=== PATIENT | male | born 1995 | race Caucasian/White ===

== ENCOUNTER 2017-06-16 18:37 | Emergency (ER) | payer BC ==
--- NOTE | 2017-06-16 18:54 | EDM.PDOC ---
ED HPI GENERAL MEDICAL PROBLEM - General Chief Complaint: ENT Problem Stated Complaint: PT HAS SORE THROAT Time Seen by Provider: 06/16/17 18:50 Source of Information: Reports: Patient History Limitations: Reports: No Limitations - History of Present Illness INITIAL COMMENTS - FREE TEXT/NARRATIVE: HISTORY AND PHYSICAL: History of present illness: Comes to the emergency room complaining of bilateral earaches, decreased hearing, and sore throat. States that his symptoms have been present for the past 3 days and are gradually worsening. States that he recently had a sinus infection and completed 7 days of antibiotics. He's not had any discharge from his years. No runny nose. Has had drainage down the back of his throat which has been irritating to him and is contributing to his sore throat. He's been able to expel some purulent drainage from his left tonsil. denies cough chest congestion and head congestion. No shortness of breath wheezing or difficulty breathing. No chest pain. Abdominal pain nausea or vomiting. Does not have a local PCP as he follows with his regular doctor in [place] when he is at home. Reports a long history of seasonal allergic rhinitis.] Review of systems: As per history of present illness and below otherwise all systems reviewed and negative. Past medical history: As per history of present illness and as reviewed below otherwise noncontributory. Surgical history: As per history of present illness and as reviewed below otherwise noncontributory. Social history: No reported history of drug or alcohol abuse. Family history: As per history of present illness and as reviewed below otherwise noncontributory. Physical exam: HEENT: Atraumatic, normocephalic. TMs are brightly injected and erythematous with moderate effusions present bilaterally. Nares are patent and without discharge. Oral mucous membranes are pink and moist. Moderate cobblestoning is appreciated to posterior oropharynx. Tonsils are mildly enlarged and mildly erythematous. No exudate is appreciated. mucous membranes are otherwise moist. Neck is supple. Mildly enlarged anterior cervical lymph nodes, greater on the left than the right. Lungs: Clear to auscultation, breath sounds equal bilaterally. No wheezing crackles or rales. Heart: S1S2, regular rate and rhythm. Abdomen: Soft, nondistended, nontender. Pelvis: Stable nontender. Genitourinary: Deferred. Rectal: Deferred. Extremities: Atraumatic, negative for cords or calf pain. Neurovascular unremarkable. Neuro: Awake, alert, oriented. Motor and sensory unremarkable throughout. Exam nonfocal. Therapeutics: [Ceftriaxone 1 g IM, Solu-Medrol 125 mg IM] Impression: [Bilateral otitis media, pharyngitis] Plan: [Ceftriaxone and Solu-Medrol were given IM in the emergency room. He is prescribed azithromycin 500 mg #5 sig one by mouth daily 0 refills. Recommend he treat seasonal allergies aggressively with a daily antihistamine, nighttime Benadryl and twice daily Flonase. He is unable to tolerate Flonase and nasal sprays. Encouraged him to follow-up with a local primary care provider if he does not plan to return home in the next couple of weeks. He is in agreement with today's plan. All questions are answered and concerns are addressed.] Definitive disposition and diagnosis as appropriate pending reevaluation and review of above. Throat Pain Score (Numeric/FACES): 4 - Related Data Allergies Allergy/AdvReac Type Severity Reaction Status Date / Time amoxicillin Allergy throat Verified 06/16/17 18:52 swelling Penicillins Allergy Rash Verified 06/16/17 18:52 Home Meds: Home Meds . [No Known Home Meds] 06/16/17 [History] ED ROS ENT - Review of Systems Review Of Systems: ROS reveals no pertinent complaints other than HPI. ED EXAM, ENT - Physical Exam Exam: See Below Course - Vital Signs Last Recorded V/S: Last Vital Signs Temp 97.5 F 06/16/17 18:54 Pulse 92 06/16/17 18:54 Resp 16 06/16/17 18:54 BP 141/82 H 06/16/17 18:54 Pulse Ox 99 06/16/17 18:54 - Orders/Labs/Meds Meds: Medications Discontinued Medications Generic Name Dose Route Start Last Admin Trade Name Freq PRN Reason Stop Dose Admin Ceftriaxone Sodium 1,000 mg/ 4 mls @ 4 mls/sec 06/16/17 19:06 Lidocaine HCl IM 06/16/17 19:07 ONETIME ONE Methylprednisolone Sodium Succinate 125 mg 06/16/17 19:06 Solu-Medrol IM 06/16/17 19:07 ONETIME ONE Departure - Departure Time of Disposition: 19:20 Disposition: Home, Self-Care 01 Condition: Good Clinical Impression: Otitis media, Pharyngitis - Discharge Information Referrals: PCP,None [Primary Care Provider] - Forms: ED Department Discharge Additional Instructions: The following information is given to patients seen in the emergency department who are being discharged to home. This information is to outline your options for follow-up care. We provide all patients seen in our emergency department with a follow-up referral. The need for follow-up, as well as the timing and circumstances, are variable depending upon the specifics of your emergency department visit. If you don't have a primary care physician on staff, we will provide you with a referral. We always advise you to contact your personal physician following an emergency department visit to inform them of the circumstance of the visit and for follow-up with them and/or the need for any referrals to a consulting specialist. The emergency department will also refer you to a specialist when appropriate. This referral assures that you have the opportunity for follow-up care with a specialist. All of these measure are taken in an effort to provide you with optimal care, which includes your follow-up. Under all circumstances we always encourage you to contact your private physician who remains a resource for coordinating your care. When calling for follow-up care, please make the office aware that this follow-up is from your recent emergency room visit. If for any reason you are refused follow-up, please contact the [facility] emergency department at and asked to speak to the emergency department charge nurse. [facility] [address] [place] [id number] Establish care with a local primary care provider at the address listed above and Follow-up there in the next several days. Claritin or Zyrtec daily, Benadryl at bedtime.
[2017-06-16] MEDS ORDERED: methylPREDNISolone Sodium Succinate 125 MG/2 ML SDV IM ONE (19:06)
[2017-06-16] MEDS ORDERED: cefTRIAXone 1,000 MG in Lidocaine 1% 4 ML IM ONE (19:06)
[2017-06-16 19:45] VITALS: BP 127/78
== END 2017-06-16 19:43 | disposition home or self-care (01) ==
LOC: MW.ED 18:37
DX: H66.93 Otitis media, unspecified, bilateral (principal); J02.9 Acute pharyngitis, unspecified; Z88.1 Allergy status to other antibiotic agents; Z88.0 Allergy status to penicillin
CPT/HCPCS: 96372; 99282; J0696; J2930

== ENCOUNTER 2019-09-09 19:51 | Emergency (ER) | payer BC ==
--- NOTE | 2019-09-09 20:10 | EDM.PDOC ---
ED HPI GENERAL MEDICAL PROBLEM - General Chief Complaint: Fever Stated Complaint: FEVER AND CHILLS Time Seen by Provider: 09/09/19 20:10 Source of Information: Reports: Patient - History of Present Illness INITIAL COMMENTS - FREE TEXT/NARRATIVE: HISTORY AND PHYSICAL: History of present illness: [Presents post tonsillectomy day 7 with fever and chills no nausea vomiting no muffled voice drooling or trismus He does have exudates in the nasopharynx is nontoxic appearing with fever of 100.8 [address] in contact with Dr. Salmeron at [facility] who wanted him to come in for evaluation I have been in contact with Dr. Jarrett and he will be reaching out to them in the morning he recommends a gram of Rocephin and prescription for Keflex with likely follow-up tomorrow at [place] ] Review of systems: As per history of present illness and below otherwise all systems reviewed and negative. Past medical history: As per history of present illness and as reviewed below otherwise noncontributory. Surgical history: As per history of present illness and as reviewed below otherwise noncontributory. Social history: No reported history of drug or alcohol abuse. Family history: As per history of present illness and as reviewed below otherwise noncontributory. Physical exam: HEENT: Atraumatic, normocephalic, pupils reactive, negative for conjunctival pallor or scleral icterus, mucous membranes moist, throat clear, neck supple, nontender, trachea midline. Post tonsillectomy ,exudates noted. Erythema no meningeal signs Lungs: Clear to auscultation, breath sounds equal bilaterally, chest nontender. Heart: S1S2, regular, negative for clicks, rubs, or JVD. Abdomen: Soft, nondistended, nontender. Negative for masses or hepatosplenomegaly. Negative for costovertebral tenderness. Pelvis: Stable nontender. Genitourinary: Deferred. Rectal: Deferred. Extremities: Atraumatic, negative for cords or calf pain. Neurovascular unremarkable. Neuro: Awake, alert, oriented. Cranial nerves II through XII unremarkable. Cerebellum unremarkable. Motor and sensory unremarkable throughout. Exam nonfocal. Diagnostics: [CBC CMP UA blood cultures 2 ] Therapeutics: [Saline [address] Salmeron national sales consultant did help formulate tonights plan, they (ENT clinic with Dr Cutler-surgeon whom performed the surgery) will be contacting the patient in the morning with a definitive plan to [facility] he will discuss contact the patient in the morning with definitive plan ] Impression: [fever Post tonsillectomy ] Definitive disposition and diagnosis as appropriate pending reevaluation and review of above. Throat Pain Score (Numeric/FACES): 3 - Related Data Allergies Allergy/AdvReac Type Severity Reaction Status Date / Time amoxicillin Allergy throat Verified 09/09/19 19:58 swelling Penicillins Allergy Rash Verified 09/09/19 19:58 Home Meds: Home Meds Acetaminophen with Codeine [Acetaminop-Codeine 120-12 mg/5] 15 ml PO PRN [History] Past Medical History HEENT History: Reports: Sinusitis Cardiovascular History: Reports: None Respiratory History: Reports: None Musculoskeletal History: Reports: None Neurological History: Reports: None Psychiatric History: Reports: None Endocrine/Metabolic History: Reports: None - Infectious Disease History Infectious Disease History: Reports: Chicken Pox - Past Surgical History HEENT Surgical History: Reports: Myringotomy w Tube(s), Tonsillectomy Cardiovascular Surgical History: Reports: None GI Surgical History: Reports: Appendectomy Male Surgical History: Reports: None Endocrine Surgical History: Reports: None Musculoskeletal Surgical History: Reports: None Social & Family History - Family History Family Medical History: Noncontributory - Tobacco Use Smoking Status *Q: Never Smoker - Caffeine Use Caffeine Use: Reports: Energy Drinks, Soda - Recreational Drug Use Recreational Drug Use: No ED ROS GENERAL - Review of Systems Review Of Systems: See Below ED EXAM, GENERAL - Physical Exam Exam: See Below Course - Vital Signs Last Recorded V/S: Last Vital Signs Temp 100.8 F H 09/09/19 19:59 Pulse 107 H 09/09/19 21:22 Resp 18 09/09/19 21:22 BP 124/78 09/09/19 21:22 Pulse Ox 94 L 09/09/19 21:22 - Orders/Labs/Meds Orders: Active Orders 24 hr Category Date Time Status CULTURE BLOOD [BC] Stat Lab 09/09/19 20:20 Received CULTURE BLOOD [BC] Stat Lab 09/09/19 20:31 Received Sodium Chloride 0.9% [Normal Saline] 1,000 ml Med 09/09/19 21:14 Active IV STAT Blood Culture x2 Reflex Set [OM.PC] Stat Oth 09/09/19 20:14 Ordered Medication Orders Sodium Chloride (Normal Saline) 1,000 mls @ 999 mls/hr IV STAT ONE Stop: 09/09/19 22:14 Last Admin: 09/09/19 21:17 Dose: 999 mls/hr Labs: Laboratory Tests 09/09/19 09/09/19 09/09/19 Range/Units 20:14 20:20 20:32 WBC 11.81 H (4.0-11.0) K/uL RBC 5.98 H (4.50-5.90) M/uL Hgb 18.1 H (13.0-17.0) g/dL Hct 50.3 H (38.0-50.0) % MCV 84.1 (80.0-98.0) fL MCH 30.3 (27.0-32.0) pg MCHC 36.0 (31.0-37.0) g/dL RDW Std Deviation 37.7 (28.0-62.0) fl RDW Coeff of Iam 13 (11.0-15.0) % Plt Count 193 (150-400) K/uL MPV 10.50 (7.40-12.00) fL Neut % (Auto) 88.3 H (48.0-80.0) % Lymph % (Auto) 3.4 L (16.0-40.0) % [place] % (Auto) 7.8 (0.0-15.0) % Eos % (Auto) 0.2 (0.0-7.0) % Baso % (Auto) 0.3 (0.0-1.5) % Neut # (Auto) 10.4 H (1.4-5.7) K/uL Lymph # (Auto) 0.4 L (0.6-2.4) K/uL [place] # (Auto) 0.9 H (0.0-0.8) K/uL Eos # (Auto) 0.0 (0.0-0.7) K/uL Baso # (Auto) 0.0 (0.0-0.1) K/uL Nucleated RBC % 0.0 /100WBC Nucleated RBCs # 0 K/uL Lactate 1.1 (0.20-2.00) mmol/L Sodium 134 L (136-148) mmol/L Potassium 3.6 (3.5-5.1) mmol/L Chloride 100 (98-107) mmol/L Carbon Dioxide 22.7 (21.0-32.0) mmol/L BUN 20 H (7.0-18.0) mg/dL Creatinine 1.5 H (0.8-1.3) mg/dL Est Cr Clr Drug Dosing 77.06 mL/min Estimated GFR (MDRD) 56.6 ml/min Glucose 121 H (74-106) mg/dL Calcium 8.7 (8.5-10.1) mg/dL Total Bilirubin 0.5 (0.2-1.0) mg/dL AST 61 H (15-37) IU/L ALT 95 H (14-63) IU/L Alkaline Phosphatase 125 H (46-116) U/L Total Protein 7.9 (6.4-8.2) g/dL Albumin 3.6 (3.4-5.0) g/dL Globulin 4.3 H (2.6-4.0) g/dL Albumin/Globulin Ratio 0.8 L (0.9-1.6) Urine Color Urine Appearance Urine pH (5.0-8.0) Ur Specific [place] (1.001-1.035) Urine Protein (NEGATIVE) mg/dL Urine Glucose (UA) (NEGATIVE) mg/dL Urine Ketones (NEGATIVE) mg/dL Urine Occult Blood (NEGATIVE) Urine Nitrite (NEGATIVE) Urine Bilirubin (NEGATIVE) Urine Urobilinogen (<2.0) EU/dL Ur Leukocyte Esterase (NEGATIVE) Urine RBC (0-2/HPF) Urine WBC (0-5/HPF) Ur Epithelial Cells (NONE-FEW) Urine Bacteria (NEGATIVE) Urine Mucus (NONE-MOD) 09/09/19 Range/Units 20:39 WBC (4.0-11.0) K/uL RBC (4.50-5.90) M/uL Hgb (13.0-17.0) g/dL Hct (38.0-50.0) % MCV (80.0-98.0) fL MCH (27.0-32.0) pg MCHC (31.0-37.0) g/dL RDW Std Deviation (28.0-62.0) fl RDW Coeff of Iam (11.0-15.0) % Plt Count (150-400) K/uL MPV (7.40-12.00) fL Neut % (Auto) (48.0-80.0) % Lymph % (Auto) (16.0-40.0) % [place] % (Auto) (0.0-15.0) % Eos % (Auto) (0.0-7.0) % Baso % (Auto) (0.0-1.5) % Neut # (Auto) (1.4-5.7) K/uL Lymph # (Auto) (0.6-2.4) K/uL [place] # (Auto) (0.0-0.8) K/uL Eos # (Auto) (0.0-0.7) K/uL Baso # (Auto) (0.0-0.1) K/uL Nucleated RBC % /100WBC Nucleated RBCs # K/uL Lactate (0.20-2.00) mmol/L Sodium (136-148) mmol/L Potassium (3.5-5.1) mmol/L Chloride (98-107) mmol/L Carbon Dioxide (21.0-32.0) mmol/L BUN (7.0-18.0) mg/dL Creatinine (0.8-1.3) mg/dL Est Cr Clr Drug Dosing mL/min Estimated GFR (MDRD) ml/min Glucose (74-106) mg/dL Calcium (8.5-10.1) mg/dL Total Bilirubin (0.2-1.0) mg/dL AST (15-37) IU/L ALT (14-63) IU/L Alkaline Phosphatase (46-116) U/L Total Protein (6.4-8.2) g/dL Albumin (3.4-5.0) g/dL Globulin (2.6-4.0) g/dL Albumin/Globulin Ratio (0.9-1.6) Urine Color YELLOW Urine Appearance SLT CLOUDY Urine pH 5.5 (5.0-8.0) Ur Specific [place] 1.025 (1.001-1.035) Urine Protein 30 H (NEGATIVE) mg/dL Urine Glucose (UA) NEGATIVE (NEGATIVE) mg/dL Urine Ketones TRACE H (NEGATIVE) mg/dL Urine Occult Blood NEGATIVE (NEGATIVE) Urine Nitrite NEGATIVE (NEGATIVE) Urine Bilirubin MODERATE H (NEGATIVE) Urine Urobilinogen 1.0 (<2.0) EU/dL Ur Leukocyte Esterase NEGATIVE (NEGATIVE) Urine RBC NONE SEEN (0-2/HPF) Urine WBC 1-3 (0-5/HPF) Ur Epithelial Cells RARE (NONE-FEW) Urine Bacteria RARE (NEGATIVE) Urine Mucus FEW (NONE-MOD) Meds: Medications Generic Name Dose Route Start Last Admin Trade Name Freq PRN Reason Stop Dose Admin Sodium Chloride 1,000 mls @ 999 mls/hr 09/09/19 21:14 09/09/19 21:17 Normal Saline IV 09/09/19 22:14 999 mls/hr STAT ONE Administration Discontinued Medications Generic Name Dose Route Start Last Admin Trade Name Freq PRN Reason Stop Dose Admin Sodium Chloride 1,000 mls @ 999 mls/hr 09/09/19 20:14 09/09/19 20:20 Normal Saline IV 09/09/19 21:14 999 mls/hr STAT ONE Administration Ceftriaxone Sodium/Dextrose 1 50 mls @ 100 mls/hr 09/09/19 21:09 09/09/19 21: 15 gm/ Premix IV 09/09/19 21:38 100 mls/hr ONETIME ONE Administration Departure - Departure Time of Disposition: 22:03 Disposition: Home, Self-Care 01 Condition: Good Clinical Impression: Fever, Status post tonsillectomy - Discharge Information Referrals: Rosana Nolen NP [Primary Care Provider] - Forms: ED Department Discharge Additional Instructions: Your surgeon will be contacting you in the morning as discussed Medication as prescribed Further management per your surgeon, 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 This information is to outline your options for follow-up care. We provide all patients seen in our emergency department with a follow-up referral. The need for follow-up, as well as the timing and circumstances, are variable depending upon the specifics of your emergency department visit. If you don't have a primary care physician on staff, we will provide you with a referral. We always advise you to contact your personal physician following an emergency department visit to inform them of the circumstance of the visit and for follow-up with them and/or the need for any referrals to a consulting specialist. The emergency department will also refer you to a specialist when appropriate. This referral assures that you have the opportunity for follow-up care with a specialist. All of these measure are taken in an effort to provide you with optimal care, which includes your follow-up. Under all circumstances we always encourage you to contact your private physician who remains a resource for coordinating your care. When calling for follow-up care, please make the office aware that this follow-up is from your recent emergency room visit. If for any reason you are refused follow-up, please contact the [facility] emergency department at and asked to speak to the emergency department charge nurse. Sepsis Event Note - Evaluation Sepsis Screening Result: No Definite Risk - Focused Exam Vital Signs: Vital Signs Temp Pulse Resp BP Pulse Ox 09/09/19 21:22 107 H 18 124/78 94 L 09/09/19 19:59 100.8 F H 16 129/72 Date Exam was Performed: 09/09/19 Time Exam was Performed: 22:00 - My Orders Last 24 Hours: My Active Orders 09/09/19 20:14 Blood Culture x2 Reflex Set [OM.PC] Stat 09/09/19 20:20 CULTURE BLOOD [BC] Stat 09/09/19 20:31 CULTURE BLOOD [BC] Stat 09/09/19 21:14 Sodium Chloride 0.9% [Normal Saline] 1,000 ml IV STAT - Assessment/Plan Last 24 Hours: My Active Orders 09/09/19 20:14 Blood Culture x2 Reflex Set [OM.PC] Stat 09/09/19 20:20 CULTURE BLOOD [BC] Stat 09/09/19 20:31 CULTURE BLOOD [BC] Stat 09/09/19 21:14 Sodium Chloride 0.9% [Normal Saline] 1,000 ml IV STAT
[2019-09-09] MEDS: Sodium Chloride 0.9% 1,000 ML IV ONE ×2 (20:20→21:17)
[2019-09-09 20:50] LABS: CARBON DIOXIDE,CO2 22.7 mmol/L (21.0-32.0); POTASSIUM,K 3.6 mmol/L (3.5-5.1)
[2019-09-09] MEDS: cefTRIAXone 1 GM in Premix Bag 1 BAG IV ONE (21:15)
[2019-09-09 22:11] VITALS: BP 140/88; PULSE 91
== END 2019-09-09 22:15 | disposition home or self-care (01) ==
LOC: MW.ED 19:51
DX: R50.9 Fever, unspecified (principal); Z88.0 Allergy status to penicillin; Z88.1 Allergy status to other antibiotic agents; Z98.890 Other specified postprocedural states
CPT/HCPCS: 80053; 81001; 83605; 85025; 87040; 87804; 96361; 96365; 99283; J0696; J7030